=== PATIENT | female | born 1965 | race Caucasian/White ===

== ENCOUNTER → 2017-03-03 14:17 | Outpatient (POV) | payer MEDICARE, MEDICAID, SELFPAY | PROVIDERS: Visit Provider Internal Medicine | DX: Z00.00 Encounter for general adult medical examination without abnormal findings (principal) ==

== ENCOUNTER → 2017-09-08 11:29 | Outpatient (POV) | payer MEDICARE, MEDICAID, SELFPAY | PROVIDERS: Visit Provider Internal Medicine | DX: Z00.00 Encounter for general adult medical examination without abnormal findings (principal) ==

== ENCOUNTER → 2018-03-16 11:21 | Outpatient (POV) | payer MEDICARE, MEDICAID, SELFPAY | PROVIDERS: Visit Provider Internal Medicine | DX: Z00.00 Encounter for general adult medical examination without abnormal findings (principal) ==

== ENCOUNTER → 2018-09-20 13:32 | Outpatient (CLI) | payer MEDICARE, MEDICAID, SELFPAY ==
--- NOTE | 2018-09-20 13:40 | XR_ITS ---
XR chest 2V HISTORY: Shortness of air with coughing ITS.REASON: c ORDERING PHYSICIAN: Sudarshan Chaudhry MD PATIENT AGE: 53 years COMPARISON: None FINDINGS: The cardiomediastinal silhouette and pulmonary vascularity are within normal limits. There is increased density in the right upper and right lower lobe and left suprahilar region suggesting bilateral pneumonia. No effusions. Degenerative change thoracic spine. IMPRESSION: Bilateral pneumonia.
== END ==
PROVIDERS: PCP Nurse Practitioner Family; Visit Provider Internal Medicine
DX: J44.9 Chronic obstructive pulmonary disease, unspecified (principal); R06.02 Shortness of breath; Z72.0 Tobacco use
CPT/HCPCS: 71046

== ENCOUNTER → 2018-09-27 06:46 | Outpatient (CLI) | payer MEDICARE, MEDICAID, SELFPAY ==
--- NOTE | 2018-09-27 | CA_ITS ---
APPROVED REPORT Exam: Pharmacologic Technologist: Caitlin Rubio Ht: 5 ft 1 in Wt: 190 lbs BSA: 1.85 m2 HR: 51 bpm BP: 146/84 mmHg Rhythm: sinus Indications: Shortness of Breath, Abnormal EKG Medical History Medications: Losartan,,,,, HCTZ,,,,, Olanzapine,,,,, FeNOfibrate,,,,, Trazodone,,,,, MuCINEX,,,,, Levofloxacin,,,,, Budesonide,,,,, MethylpredNISOLONE,,,,, Myrebetrig,,,,, Stress Test Details Test: LEXISCAN HR Resting HR: 50 bpm Max Heart Rate (APMHR): 169 bpm Max HR Achieved: 87 bpm Target HR (85% APMHR): 143 bpm % of APMHR: 51 Recovery HR: 75 bpm BP Resting BP: 146/84 mmHg Max BP: 146/84 mmHg Recovery BP: 125.0/69.0 mmHg ECG Clinical Exercise duration: 04:01 min Highest Stage Achieved: Stress ECG Conclusion Lexiscan portion completed. Complained of shortness of breath at peak infusion. Symptoms: no chest pain. Positive shortness of breath during peak infusion, resolved in recovery. Arrhythmias/ectopy: no ectopy noted ST-T changes: less than 1.5mm ST depression Images to follow Electronically signed by : Sudarshan Chaudhry, 10/06/2018 11:43:36
--- NOTE | 2018-09-27 06:47 | CA_ITS ---
[facility] [place] RADIOLOGICAL CONSULTATION Patient Name : NICOLE NOVA X-RAY # : [id number] Physician: SMILEY DUBON AGE: 53Y : 1965 00:00:00 ( F ) Exam : CA ECHO DOPPLER COMPLETE ACC # : [id number] Study Date : 09/27/2018 09:21:20 Patient Class : O FINAL REPORT CLINICAL DATA: FINDINGS: IMPRESSION: Dictated by Nhi Rosario at 09/29/2018 12:42:57 PM Transcribed by at
--- NOTE | 2018-09-27 06:47 | NM_ITS ---
APPROVED REPORT Exam: Nuclear Stress Test KS EXAM: Myocardial Perfusion REST/STRESS Imaging Protocol: Rest Tc-99m/Stress Tc-99m 1 day Resting Data Rest SPECT myocardial perfusion imaging was performed in supine position 30 minutes following the intravenous injection of 10.33 mCi of TC99 Time of rest injection: 0705 Administration Route: IV Administration Site: Left AC Pharmacologic Stress Pharmacologic stress test was performed by injecting Regadenoson 0.4 mg IV push followed by the intravenous injection of 30.7 mCi of TC99 Time of stress injection: 0845 Administration Route: IV Administration Site: Left AC Gated Stress SPECT was performed 45 minutes after stress injection. The images were gated to evaluate regional wall motion and calculate left ventricular ejection fraction. Nuclear Conclusion Stress images reveal severely decreased activity throughout the inferior wall septum portion of the lateral wall with mildly decreased activity in the anterior wall. Rest images reveal no significant change. Gated images calculated ejection fraction of 71% with normal wall motion Clinical correlation is required. High risk abnormal stress test with multiple defects. This test suggests multivessel coronary artery disease Electronically signed by : Sudarshan Chaudhry, 10/01/2018 13:34:18
--- NOTE | 2018-09-27 08:33 | HMH.ITSHM ---
Current Home Medications as stated by this patient Josi Vanessa or benefits representative. []METHYLPREDNISOLONE BUDESOMIDE LOSARTAN TRAZODONE OLANZAPINE HYDROCHLOROTHIAZIDE FENOFIBRATE MUCINEX LEVOFLOXACIN MYREBETRIQ
== END ==
PROVIDERS: PCP Nurse Practitioner Family; Visit Provider Internal Medicine
DX: R06.02 Shortness of breath (principal); R94.31 Abnormal electrocardiogram [ECG] [EKG]; R60.9 Edema, unspecified; Z82.49 Family history of ischemic heart disease and other diseases of the circulatory system
CPT/HCPCS: 78452; 93017; 93306; A9502; J2785

== ENCOUNTER → 2020-05-15 13:53 | Outpatient (CLI) | payer MEDICARE, MEDICAID, SELFPAY ==
[2020-05-15 15:26] LABS: Anion Gap 15.6 mEq/L (5-15); Blood Urea Nitrogen 21 mg/dl (7-17); Calcium 9.7 mg/dl (8.4-10.2); Carbon Dioxide 31 mmol/L (22.0-30.0); Chloride 98 mmol/L (98-107); Estimated Glomerular Filt Rate 66 ml/min (>60); GFR (African American) 80 ML/MIN (>60); Glucose 94 mg/dl (74-100); Potassium 4.6 mmoL/L (3.5-5.1); Sodium 140 mmol/L (136-145)
[2020-05-15 15:41] LABS: T4 (Thyroxine) 11.2 ug/dl (5.53-11.0); Triiodothryronine (T3) Uptake 27 % (23.5-40.5)
[2020-05-15 15:55] LABS: Thyroid Stimulating Hormone 4.14 uIU/mL (0.465-4.68)
== END ==
PROVIDERS: Visit Provider Internal Medicine
DX: I10 Essential (primary) hypertension (principal); I51.89 Other ill-defined heart diseases; J43.9 Emphysema, unspecified; R06.02 Shortness of breath; R60.0 Localized edema; R94.31 Abnormal electrocardiogram [ECG] [EKG]; Z72.0 Tobacco use
CPT/HCPCS: 36415; 80048; 84436; 84443; 84479

== ENCOUNTER → 2021-09-11 10:47 | Outpatient (CLI) | payer MEDICARE, MEDICAID, SELFPAY ==
[2021-09-11 11:30] LABS: Chloride 101 mmol/L (98-107); Potassium 4.5 mmoL/L (3.5-5.1)
[2021-09-11 11:32] LABS: Alanine Aminotransferase 28 U/L (12-78); Anion Gap 10.5 mEq/L (5-15); Aspartate Amino Transferase 39 U/L (14-36); Carbon Dioxide 32 mmol/L (22.0-30.0); Sodium 139 mmol/L (136-145)
[2021-09-11 11:33] LABS: Calcium 9.5 mg/dl (8.4-10.2); Cholesterol 108 mg/dl (140-200); Glucose 122 mg/dl (74-100); Triglycerides 89 mg/dl (30-150); VLDL Cholesterol 18 mg/dL (0-40)
[2021-09-11 11:35] LABS: Albumin Level 4.2 g/dl (3.5-5.0); Alkaline Phosphatase 88 U/L (38-126); Chol/HDL Ratio 2.3 (1-3.5); HDL Cholesterol 46 mg/dl (40-60); Total Protein,Serum 6.6 g/dl (6.3-8.2)
[2021-09-11 11:37] LABS: Blood Urea Nitrogen 16 mg/dl (7-17)
[2021-09-11 11:38] LABS: Bilirubin,Total 0.2 mg/dl (0.2-1.3); Estimated Glomerular Filt Rate 75 ml/min (>60); GFR (African American) 90 ML/MIN (>60)
[2021-09-11 11:44] LABS: Direct LDL Cholesterol 46.94 mg/dL (100-129)
[2021-09-11 12:01] LABS: Bilirubin,Direct 0.2 mg/dl (0.0-0.4); Bilirubin,Indirect 0.1 mg/dL (0.0-0.9)
== END ==
PROVIDERS: PCP Nurse Practitioner Family; Visit Provider Nurse Practitioner
DX: I10 Essential (primary) hypertension (principal); J44.9 Chronic obstructive pulmonary disease, unspecified; R06.02 Shortness of breath; R60.9 Edema, unspecified; R94.31 Abnormal electrocardiogram [ECG] [EKG]; Z72.0 Tobacco use; Z82.49 Family history of ischemic heart disease and other diseases of the circulatory system
CPT/HCPCS: 36415; 80048; 80061; 80076